=== PATIENT | male | born 1960 | race Two or more races ===

== ENCOUNTER 2019-11-08 12:36 | Inpatient (IN) | payer MEDICAID ==
[~2019-11-08] VITALS: Ht 165.1 cm; Wt 62.0 kg
[~2019-11-08 12:36] MED LIST: CIPR250T27 PO; METR500T PO; SPIR100T PO; SULF1TAB24 PO
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
[2019-11-08] MEDS ORDERED: SODIUM CHLORIDE 0.9% 1,000 ML IV ONE (14:10)
[2019-11-08] MEDS ORDERED: SODIUM CHLORIDE FLUSH 10ML SYR IVF ONE (14:30)
[2019-11-08 14:42] LABS: MEAN CORPUSCULAR HEMOGLOBIN 24.2 pg (27.5-34.5); MEAN CORPUSCULAR VOLUME 75.7 fL (81-97); MEAN PLATELET VOLUME 6.4 fL (7.4-10.4); PLATELET COUNT 635 x10^3/uL (130-400); RED CELL DISTRIBUTION WIDTH 28.2 % (9.4-14.8)
[2019-11-08 14:44] LABS: ALANINE AMINOTRANSFERASE 25 U/L (12-78); ALBUMIN 2.4 g/dL (3.4-5.0); ANION GAP 9 mmol/L (5-15); CALCIUM 8.2 mg/dL (8.5-10.1); CHLORIDE 86 mmol/L (98-107); CREATININE 1.19 mg/dL (0.7-1.3)
[2019-11-08 14:46] LABS: ALKALINE PHOSPHATASE 387 U/L (45-117); BILIRUBIN,TOTAL 0.6 mg/dL (0.2-1.0); TOTAL PROTEIN 6.8 g/dL (6.4-8.2)
[2019-11-08 14:59] LABS: MICROSCOPIC NOT IND
[2019-11-08 15:14] LABS: MD YES
[2019-11-08 15:16] LABS: BAND#(MANUAL) 0.49 x10^3/uL; BANDS%(MANUAL) 2 % (0-7); LYMPH#(MANUAL) 1.72 x10^3/uL (1-3.4); LYMPHS% (MANUAL) 7 % (22-44); MONOS#(MANUAL) 0.49 x10^3/uL (0.3-2.7); MONOS% (MANUAL) 2 % (2-9); MYELOCYTES# (MANUAL) 0.25 x10^3/uL (0-0); MYELOCYTES% (MANUAL) 1 % (0-0); SEG#(MANUAL) 21.65 x10^3/uL (1.8-6.8); SEGS% (MANUAL) 88 % (42-75)
[2019-11-08 15:17] LABS: ANISOCYTOSIS 1+; HYPOCHROMIA 1+; MICROCYTOSIS 1+; POLYCHROMASIA 1+
[2019-11-08 15:18] LABS: <PLATELET ESTIMATE> INCREASED; <PLT MORPHOLOGY> NORMAL PLT MORPH; OVALOCYTES 1+
[2019-11-08] MEDS ORDERED: LIDOCAINE 1%, 10ML ONE (15:29)
--- NOTE | 2019-11-08 15:37 | NUR ---
PT TAKEN TO US FOR PARACENTESIS.
[2019-11-08] MEDS ORDERED: CEFTRIAXONE PMX 1GM/50ML 50 ML IVPB ONE (16:00)
--- NOTE | 2019-11-08 16:02 | NUR ---
PT BACK FROM US
[2019-11-08] MEDS ORDERED: CEFTRIAXONE 1,000 MG ONE (16:24)
[2019-11-08 16:42] LABS: INTERNATIONAL NORMALIZED RATIO 1.2 (0.93-1.1); PROTHROMBIN TIME 12.7 Seconds (9.6-11.5)
[2019-11-08 16:59] LABS: CREATININE,URINE RANDOM 38.9 mg/dL
[2019-11-08] MEDS ORDERED: TRAZODONE 50MG TABLET PO PRN (17:00)
[2019-11-08] MEDS ORDERED: ONDANSETRON 2MG/ML, 2ML IVPush PRN (17:00)
[2019-11-08] MEDS ORDERED: SODIUM CHLORIDE FLUSH 10ML SYR IVF PRN (17:00)
--- NOTE | 2019-11-08 18:29 | NUR ---
REPORT GIVEN TO GONSALO LUNA
[2019-11-08] MEDS: ALBUMIN HUMAN 25% 100 ML IV SCH (18:30)
[2019-11-08 19:18] VITALS: BP 105/60
[2019-11-08] MEDS: LACTULOSE 10 GM/15 ML UDC PO SCH (20:43)
[2019-11-08] MEDS: MIDODRINE 5 MG TABLET PO SCH ×2 (20:43→20:45)
[2019-11-08] MEDS: SODIUM CHLORIDE 0.9% 1,000 ML IV SCH (20:45)
[2019-11-08] MEDS ORDERED: VITA10004 PO (21:41)
[2019-11-08] MEDS ORDERED: ERGO500017 PO (21:41)
[2019-11-08] MEDS ORDERED: MULT-826 PO (21:41)
[2019-11-08] MEDS ORDERED: HYDR-826 PO (21:41)
[2019-11-08] MEDS ORDERED: OMEP20TA62 PO (21:41)
[2019-11-08] MEDS ORDERED: FURO40TA6 PO (21:41)
[2019-11-08] MEDS ORDERED: VITA1CAP5 PO (21:41)
[2019-11-08] MEDS ORDERED: LACT10SO20 PO (21:41)
[2019-11-08] MEDS ORDERED: TRAM50TA2 PO (21:41)
[2019-11-08 22:34] LABS: ANION GAP 8 mmol/L (5-15); CALCIUM 8.1 mg/dL (8.5-10.1); CHLORIDE 92 mmol/L (98-107); CREATININE 1.03 mg/dL (0.7-1.3)
[2019-11-09 01:26] VITALS: BP 103/68
[2019-11-09] MEDS: ALBUMIN HUMAN 25% 100 ML IV SCH ×3 (02:25→21:44)
[2019-11-09 05:46] LABS: ALANINE AMINOTRANSFERASE 25 U/L (12-78); ALBUMIN 2.4 g/dL (3.4-5.0); ANION GAP 11 mmol/L (5-15); CALCIUM 7.9 mg/dL (8.5-10.1); CHLORIDE 95 mmol/L (98-107); CREATININE 0.92 mg/dL (0.7-1.3)
[2019-11-09 05:48] LABS: ALKALINE PHOSPHATASE 367 U/L (45-117); BILIRUBIN,TOTAL 0.4 mg/dL (0.2-1.0); TOTAL PROTEIN 6.1 g/dL (6.4-8.2)
[2019-11-09 05:54] LABS: MEAN CORPUSCULAR HEMOGLOBIN 24.1 pg (27.5-34.5); MEAN CORPUSCULAR HGB CONC 31.7 g/dL (33.2-36.2); MEAN CORPUSCULAR VOLUME 76.1 fL (81-97); MEAN PLATELET VOLUME 6.3 fL (7.4-10.4); PLATELET COUNT 493 x10^3/uL (130-400); RED BLOOD COUNT 3.04 x10^6/uL (4.38-5.82); RED CELL DISTRIBUTION WIDTH 28.4 % (9.4-14.8)
[2019-11-09] MEDS: SODIUM CHLORIDE 0.9% 1,000 ML IV SCH (06:20)
[2019-11-09 06:48] LABS: MD YES
[2019-11-09 06:50] LABS: BAND#(MANUAL) 0.37 x10^3/uL; BANDS%(MANUAL) 2 % (0-7); EOS#(MANUAL) 0.18 x10^3/uL (0.0-0.4); EOS% (MANUAL) 1 % (1-7); LYMPHS% (MANUAL) 6 % (22-44); MONOS#(MANUAL) 0.73 x10^3/uL (0.3-2.7); MONOS% (MANUAL) 4 % (2-9); MYELOCYTES# (MANUAL) 0.18 x10^3/uL (0-0); MYELOCYTES% (MANUAL) 1 % (0-0); SEG#(MANUAL) 15.74 x10^3/uL (1.8-6.8); SEGS% (MANUAL) 86 % (42-75)
[2019-11-09 06:54] LABS: <PLATELET ESTIMATE> INCREASED; <PLT MORPHOLOGY> NORMAL PLT MORPH; ANISOCYTOSIS 1+; HYPOCHROMIA 1+; MICROCYTOSIS 1+; OVALOCYTES 1+; POLYCHROMASIA 1+
[2019-11-09 07:20] VITALS: BP 102/53
[2019-11-09] MEDS ORDERED: PANTOPRAZOLE 40 MG IV IVPush SCH (07:30)
[2019-11-09] MEDS: MIDODRINE 5 MG TABLET PO SCH ×3 (09:27→21:45)
[2019-11-09] MEDS: LACTULOSE 10 GM/15 ML UDC PO SCH ×2 (09:27→21:44)
[2019-11-09 13:44] VITALS: BP 93/55
[2019-11-09] MEDS ORDERED: CEFTRIAXONE PMX 1GM/50ML 50 ML IV SCH (16:00)
[2019-11-09 19:53] VITALS: BP 97/64
[2019-11-10 02:57] VITALS: BP 97/62
[2019-11-10 05:32] LABS: MEAN CORPUSCULAR HEMOGLOBIN 24.6 pg (27.5-34.5); MEAN CORPUSCULAR HGB CONC 32.3 g/dL (33.2-36.2); MEAN CORPUSCULAR VOLUME 76.2 fL (81-97); MEAN PLATELET VOLUME 6.2 fL (7.4-10.4); PLATELET COUNT 520 x10^3/uL (130-400); RED BLOOD COUNT 3.38 x10^6/uL (4.38-5.82); RED CELL DISTRIBUTION WIDTH 27.8 % (9.4-14.8)
[2019-11-10] MEDS: ALBUMIN HUMAN 25% 100 ML IV SCH (05:36)
[2019-11-10 05:37] LABS: ALANINE AMINOTRANSFERASE 23 U/L (12-78); ALBUMIN 2.6 g/dL (3.4-5.0); ANION GAP 8 mmol/L (5-15); CALCIUM 7.9 mg/dL (8.5-10.1); CHLORIDE 96 mmol/L (98-107)
[2019-11-10 05:39] LABS: ALKALINE PHOSPHATASE 396 U/L (45-117); BILIRUBIN,TOTAL 0.5 mg/dL (0.2-1.0)
[2019-11-10 05:58] LABS: MD YES
[2019-11-10 06:00] LABS: BANDS%(MANUAL) 1 % (0-7); LYMPH#(MANUAL) 0.99 x10^3/uL (1-3.4); LYMPHS% (MANUAL) 5 % (22-44); METAMYELOCYTES% (MANUAL) 1 % (0-1); MONOS#(MANUAL) 0.59 x10^3/uL (0.3-2.7); MONOS% (MANUAL) 3 % (2-9); MYELOCYTES% (MANUAL) 2 % (0-0); SEG#(MANUAL) 17.42 x10^3/uL (1.8-6.8); SEGS% (MANUAL) 88 % (42-75)
[2019-11-10] MEDS ORDERED: PANTOPRAZOLE 40MG TABLET PO SCH (06:00)
[2019-11-10 06:01] LABS: ANISOCYTOSIS 1+; POLYCHROMASIA 1+
[2019-11-10 06:02] LABS: HYPOCHROMIA 1+; OVALOCYTES 1+
[2019-11-10 06:03] LABS: <PLATELET ESTIMATE> INCREASED; <PLT MORPHOLOGY> NORMAL PLT MORPH
[2019-11-10 07:28] VITALS: BP 98/55
[2019-11-10] MEDS: LACTULOSE 10 GM/15 ML UDC PO SCH (08:23)
[2019-11-10] MEDS: MIDODRINE 5 MG TABLET PO SCH (08:24)
[2019-11-10] MEDS ORDERED: PANT40TA5 PO (12:46)
[2019-11-10] MEDS ORDERED: LACT10SO24 PO (12:46)
[2019-11-10] MEDS ORDERED: MIDO5TAB9 PO (12:46)
[2019-11-10] MEDS ORDERED: CEFD300C37 PO (12:47)
[2019-11-10] MEDS ORDERED: SODIUM CHLORIDE 0.9% 1,000 ML IV SCH (16:32)
== END 2019-11-10 13:00 | disposition hospice, home (50) | DRG 871 ==
LOC: EDSEX 12:36 → ED 16:38 → EDIP 17:07 → 3N 19:01
PROVIDERS: ADMIT Emergency Medicine; ATTEND Emergency Medicine
PROC: 0W9G3ZZ Drainage of Peritoneal Cavity, Percutaneous Approach (ICD-10-PCS; principal; 2019-11-08)
DX: A41.9 Sepsis, unspecified organism (principal); E43 Unspecified severe protein-calorie malnutrition; K65.2 Spontaneous bacterial peritonitis; E87.1 Hypo-osmolality and hyponatremia; N17.9 Acute kidney failure, unspecified; K70.31 Alcoholic cirrhosis of liver with ascites; Z51.5 Encounter for palliative care; Z66 Do not resuscitate; Z79.899 Other long term (current) drug therapy; Z68.22 Body mass index [BMI] 22.0-22.9, adult
CPT/HCPCS: 36415; 82042; 84145; 89051; 99291; J3490; 49083; 71045; 80048; 80053; 80307; 81003; 82140; 82570; 83605; 83615; 83690; 83735; 83930; 83935; 84100; 84300; 85025; 85610; 87040; 87070; 87205; 93005; G0378; J0696; P9047; C9113; J7030